=== PATIENT | female | born 1990 | race Caucasian/White ===

== ENCOUNTER 2022-04-18 13:48 | Emergency (ER) | payer OTHER, SELFPAY ==
--- NOTE | ~2022-04-18 | XR_ITS ---
XR chest 2V DATE: 04/18/2022 14:49 INDICATION: Cough, sore throat TECHNIQUE: PA and lateral views COMPARISON: None FINDINGS: Normal heart size. No hilar or mediastinal enlargement. No pulmonary infiltrate or consolid ation, pleural effusion or pulmonary vascular congestion or pneumothorax. There is minimal levoscoliosis mild degenerative spurring of the thoracic spine. IMPRESSION: No active cardiopulmonary disease Reviewed, dictated and finalized at location [facility]
[2022-04-18 13:58] VITALS: BP 115/86; PULSE 136; RESP 20; TEMP 37.2; O2SAT 99
--- NOTE | 2022-04-18 15:07 | ED.URI ---
HPI - URI/Sore Throat General Chief Complaint: Upper Respiratory Infection Stated Complaint: sore throat x2 days Time Seen by Provider: 04/18/22 14:21 History of Present Illness HPI Narrative: Pt presents with sore throat and body aches for 3-4 days. Pt feels like she has had a fever but has not taken it. Pt has mild cough. Pt denies exposures. Related Data Allergies Allergy/AdvReac Type Severity Reaction Status Date / Time No Known Allergies Allergy Verified 04/18/22 15:28 Review of Systems Review of Systems: All systems reviewed & are unremarkable except as noted in HPI and below Exam Const: General: healthy appearing Nutritional Appearance: well nourished Orientation/consciousness: patient oriented x3 Limitations: no limitations HENMT: Mouth: Yes Normal oral and palatal mucosa present Throat: posterior oropharynx normal (erythemoatous without exudate) Neck: Neck: normal visual inspection and lymphadenopathy Resp: Effort & Inspection: normal respiratory effort Auscultation: clear to auscultation bilaterally Cardio: Rate: regular rate Rhythm: regular rhythm GI: GI Palp: Yes Soft to palpation Auscultation: normal bowel sounds Skin: General skin exam: normal color Rashes: no rashes Wounds: no wounds Neuro: General: patient oriented x3, moves all extremities, no meningeal signs, no focal motor deficits and CN's II-XI intact bilaterally Cranial nerves: Yes Nystagmus not present Speech: normal speech Extrem: General: normal to inspection and no clubbing, cyanosis or edema Psych: Mental Status: mental status grossly normal Affect: normal affect Attitude: cooperative Course Vital Signs Vital signs: Vital Signs Temperature 99.0 F 04/18/22 13:58 Pulse Rate 136 H 04/18/22 13:58 Respiratory Rate 20 04/18/22 13:58 Blood Pressure 115/86 04/18/22 13:58 Pulse Oximetry 99 04/18/22 13:58 Oxygen Delivery Room Air 04/18/22 13:58 Temperature 99.0 F 04/18/22 13:58 Pulse Rate 136 H 04/18/22 13:58 Respiratory Rate 20 04/18/22 13:58 Blood Pressure 115/86 04/18/22 13:58 Pulse Oximetry 99 04/18/22 13:58 Oxygen Delivery Room Air 04/18/22 13:58 MDM - URI/Sore Throat Lab Data Labs: Lab Results 04/18/22 04/18/22 Range/Units 14:03 14:33 Influenza A (RT-PCR) Negative (Negative) Influenza B (RT-PCR) Negative (Negative) RSV (RT-PCR) Negative (Negative) SARS-CoV-2 RNA (RT-PCR) Positive A Group A Strep (PCR) Negative (Negative) Discharge Plan Discharge Clinical Impression: COVID Patient Disposition: Home, Self-Care Condition: Stable Instructions: Antibiotic Form, COVID-19 (Coronavirus Disease 2019) (ED) Prescriptions: New naproxen [Naprosyn] 500 mg tablet 500 mg PO BID Qty: 20 0RF lidocaine HCl [Lidocaine Viscous] 2 % solution 1 applic mucous membrane TID Qty: 100 0RF Follow-up/Referrals: Flip,DANIEL Hays [Primary Care Provider] -
[2022-04-18 15:28] LABS: Influenza A QL RT-PCR Negative (Negative); Influenza B QL RT-PCR Negative (Negative); RSV RNA, RT-PCR Negative (Negative); SARS-CoV-2 RNA PCR Positive
[2022-04-18] MEDS: KETOROLAC 30 MG/ML VIAL (*BKC) IM (15:29)
[2022-04-18 15:57] LABS: Strep Group A RT-PCR Negative (Negative)
== END 2022-04-18 16:28 | disposition home or self-care (01) ==
PROVIDERS: Emergency Provider Emergency Medicine; PCP Nurse Practitioner Family
DX: U07.1 COVID-19 (principal)
CPT/HCPCS: 71046; 87637; 87651; 96372; 99283; J1885